=== PATIENT | female | born 1975 | race Caucasian/White ===

== ENCOUNTER → 2023-11-06 10:20 | Outpatient (REF) | payer BC, SELFPAY | LOC: HWRAD 10:20 | PROVIDERS: ATTENDING PHYSICIAN Nurse Practitioner Family; FAMILY PHYSICIAN Family Medicine | DX: M79.671 Pain in right foot (principal); M79.672 Pain in left foot | CPT/HCPCS: 73630 ==

== ENCOUNTER → 2024-08-23 07:51 | Outpatient (REF) | payer BC, SELFPAY | LOC: DHSLP 07:51 | PROVIDERS: ATTENDING PHYSICIAN Otolaryngology; FAMILY PHYSICIAN Family Medicine | DX: G47.33 Obstructive sleep apnea (adult) (pediatric) (principal) | CPT/HCPCS: 95800 ==